=== PATIENT | male | born 1975 | race Caucasian/White ===

== ENCOUNTER 2017-08-20 22:16 | Emergency (ER) | payer SELFPAY ==
[2017-08-20] MEDS ORDERED: 0.9 % SODIUM CHLORIDE 1,000 ML BAG IV ONE (22:38)
[2017-08-20 22:39] LABS: BASO % 0.1 % (0-6); HEMATOCRIT 32.7 % (42.0-52.0); HEMOGLOBIN 11.2 gm/dl (14.0-18.0); LYMPH % 6.4 % (16-45); MEAN CELL VOLUME 89.8 fl (81-97); MEAN CORPUSCULAR HGB CONC 34.3 g/dl (32-36); MEAN PLATELET VOLUME 10.3 fl (7.4-10.4); MONO % 6.2 % (0-9); PLATELET COUNT 923 K/uL (130-400); RED BLOOD COUNT 3.64 M/uL (4.40-5.70); RED CELL DISTRIBUTION WIDTH 15.2 % (11.5-14.5)
[2017-08-20 22:40] LABS: INFLUENZA A NEGATIVE (NEGATIVE); INFLUENZA B NEGATIVE (NEGATIVE)
[2017-08-20 22:41] LABS: MEAN CORPUSCULAR HEMOGLOBIN 30.7 pg (27-33); WHITE BLOOD COUNT W/O DIFF 35.8 K/uL (4.2-12.2)
[2017-08-20 22:52] LABS: BLOOD UREA NITROGEN 32 mg/dL (6-20); EST GLOMERULAR FILTRATION RATE 39 mL/min
[2017-08-20 22:53] LABS: TOTAL PROTEIN 8.9 g/dL (6.6-8.7)
[2017-08-20 22:55] LABS: GLUCOSE,RANDOM 150 mg/dL (74-109)
[2017-08-20 22:57] LABS: ALT/SGPT 7 U/L (<41); AST/SGOT 8 U/L (10.0-50.0)
[2017-08-20 22:58] LABS: ALB/GLOB RATIO 0.6 (1.1-1.8); ALBUMIN 3.3 g/dL (4.0-5.0); ALKALINE PHOSPHATASE 145 U/L (40-129)
[2017-08-20] MEDS ORDERED: SOD CHLOR 0.9% WITH KCL 40MEQ 40 MEQ/1,000 ML IV.SOLN IV ONE (23:12)
[2017-08-20] MEDS ORDERED: POTASSIUM CHLORIDE 20 MEQ/15ML CUP PO ONE (23:12)
[2017-08-20 23:13] LABS: PLATELET ESTIMATE INCREASED (NORMAL)
[2017-08-20 23:14] LABS: HYPERSEGMENTED POLYS 2+
[2017-08-20] MEDS ORDERED: ONDANSETRON HCL IV 4 MG/2 ML VIAL IVP ONE (23:49)
[2017-08-20] MEDS ORDERED: CEFTRIAXONE SODIUM 1 GM in 0.9 % SODIUM CHLORIDE 100ML 100 ML IVPB ONE (23:55)
--- NOTE | 2017-08-21 00:08 | Emergency Department Record ---
History of Present Illness - General Chief Complaint: Shortness of breath Stated Complaint: MAGDA,COUCH, PAIN UNDER RIBS Time Seen by Provider: 08/20/17 22:23 Source: Patient Mode of Arrival: Ambulatory Limitations: No limitations - History of Present Illness Initial Comments: pt has been sick for 6 wks. he was dxd w bronchitis.he had no cxr. he has contd to be sick. he has pain in his right chest. he is sob. he has not been to a dr in years except for bronchits. he smokes MD Complaint: Chest pain, Cough, Pain with inspiration, Shortness of breath Onset/Timin -: Month(s) Severity scale (1-10): 8 Quality: Sharp, Stabbing Consistency: Constant Improves With: Nothing Worsens With: Coughing Associated Symptoms: Chest pain, Cough Treatments Prior to Arrival: Bronchodilator - Related Data Home Oxygen Therapy: No Allergies Allergy/AdvReac Type Severity Reaction Status Date / Time No Known Drug Allergies Allergy Verified 08/20/17 22:20 Travel Screening - Travel/Exposure Within Last 30 Days Have you traveled within the last 30 days?: No - Travel Symptoms Symptom Screening: None Review of Systems Reviewed: No additional complaints except as noted below Constitutional: Reports: As per HPI. Denies: Chills, Fever, Malaise, Night sweats, Weakness, Weight change Eyes: Reports: As per HPI. Denies: Eye discharge, Eye pain, Photophobia, Vision change ENT: Reports: As per HPI. Denies: Congestion, Dental pain, Ear pain, Epistaxis , Hearing loss, Throat pain Respiratory: Reports: As per HPI, Cough, Dyspnea. Denies: Hemoptysis, Stridor, Wheezes Cardiovascular: Reports: As per HPI, Chest pain. Denies: Arrhythmia, Dyspnea on exertion, Edema, Murmurs, Orthopnea, Palpitations, Paroxysmal nocturnal dyspnea, Rheumatic Fever, Syncope Endocrine: Reports: As per HPI. Denies: Fatigue, Heat or cold intolerance, Polydipsia, Polyuria Gastrointestinal: Reports: As per HPI. Denies: Abdominal pain, Constipation, Diarrhea, Hematemesis, Hematochezia, Melena, Nausea, Vomiting Genitourinary: Reports: As per HPI. Denies: Dysuria, Frequency, Hematuria, Incontinence, Retention, Testicular pain, Testicular mass, Urgency Musculoskeletal: Reports: As per HPI. Denies: Arthralgia, Back pain, Gout, Joint swelling, Myalgia, Neck pain Skin: Reports: As per HPI. Denies: Bruising, Change in color, Change in hair/ nails, Lesions, Pruritus, Rash Neurological: Reports: As per HPI. Denies: Abnormal gait, Confusion, Headache, Numbness, Paresthesias, Seizure, Tingling, Tremors, Vertigo, Weakness Psychiatric: Reports: As per HPI. Denies: Anxiety, Auditory hallucinations, Depression, Homicidal thoughts, Suicidal thoughts, Visual hallucinations Hematological/Lymphatic: Reports: As per HPI. Denies: Anemia, Blood Clots, Easy bleeding, Easy bruising, Swollen glands Past Medical History - SOCIAL HISTORY Smoking Status: Current every day smoker - RESPIRATORY Hx Respiratory Disorders: No - CARDIOVASCULAR Hx Cardio Disorders: No - NEURO Hx Neuro Disorders: No - GI Hx GI Disorders: No - Hx Genitourinary Disorders: No - ENDOCRINE Hx Endocrine Disorders: No - MUSCULOSKELETAL Hx Musculoskeletal Disorders: No - PSYCH Hx Psych Problems: No - HEMATOLOGY/ONCOLOGY Hx Hematology/Oncology Disorders: No Family Medical History Any Significant Family History?: Yes Hx HTN: Father Physical Exam - General General Appearance: Alert, Oriented x3, Cooperative, Mild distress - Head Head exam: Normal inspection - Eye Eye exam: Normal appearance, PERRL, EOMI Pupils: Normal accommodation - ENT ENT exam: Normal exam, Mucous membranes moist, Normal external ear exam, Normal orophraynx Ear exam: Normal external inspection. negative: External canal tenderness Nasal Exam: Normal inspection. negative: Discharge, Sinus tenderness Mouth exam: Normal external inspection, Tongue normal Teeth exam: Normal inspection. negative: Dental caries Throat exam: Normal inspection. negative: Tonsillar erythema, Tonsillar exudate - Neck Neck exam: Normal inspection, Full ROM. negative: Tenderness - Respiratory Respiratory exam: Rales, Rhonchi. negative: Respiratory distress - Cardiovascular Cardiovascular Exam: Normal rhythm, Normal heart sounds, Tachycardia - GI/Abdominal GI/Abdominal exam: Soft, Normal bowel sounds. negative: Tenderness - Rectal Rectal exam: Deferred - exam: Deferred - Extremities Extremities exam: Normal inspection, Full ROM, Normal capillary refill. negative: Tenderness - Back Back exam: Reports: Normal inspection, Full ROM. Denies: Muscle spasm, Rash noted, Tenderness - Neurological Neurological exam: Alert, Normal gait, Oriented X3, Reflexes normal - Psychiatric Psychiatric exam: Normal affect, Normal mood - Skin Skin exam: Dry, Intact, Normal color, Warm Course Vital Signs 08/20/17 08/20/17 08/20/17 22:23 23:02 23:50 Temperature 98.5 F Pulse Rate [ 112 H 114 H [employer] ] Pulse Rate [ 148 H Pulse Ox Probe] Respiratory 28 H 20 24 Rate Blood Pressure 140/117 [Left Arm] Blood Pressure 129/93 163/108 [Right Arm] Pulse Ox 98 99 99 Medical Decision Making - Lab Data Result diagrams: 08/20/17 22:30 08/20/17 22:30 Lab Results 08/20/17 08/20/17 08/20/17 Range/Units 22:29 22:30 22:30 WBC 35.8 H* (4.2-12.2) K/uL RBC 3.64 L (4.40-5.70) M/uL Hgb 11.2 L (14.0-18.0) gm/dl Hct 32.7 L (42.0-52.0) % MCV 89.8 (81-97) fl MCH 30.7 (27-33) pg MCHC 34.3 (32-36) g/dl RDW 15.2 H (11.5-14.5) % Plt Count 923 H (130-400) K/uL MPV 10.3 (7.4-10.4) fl Neutrophils % 87.0 H (47-80) % Lymphocytes % 6.4 L (16-45) % Monocytes % 6.2 (0-9) % Eosinophils % 0.0 (0-6) % Basophils % 0.1 (0-6) % Lymphocytes 8.0 L (16-45) % Monocytes 5.0 (0-9) % Hypersegmented Polys 2+ Platelet Estimate Increased (NORMAL) RBC Morphology Normal D-Dimer (0-0.59) mg/L FEU Sodium 129 L (136-145) mmol/L Potassium 2.8 L* (3.4-4.5) mmol/L Chloride 79 L (98-107) mmol/L Carbon Dioxide 11.0 L (22-29) mmol/L Anion Gap 39.0 H (7-16) BUN 32 H (6-20) mg/dL Creatinine 2.0 H (0.7-1.2) mg/dL Estimated GFR 39 mL/min Random Glucose 150 H (74-109) mg/dL Calcium 11.3 H (8.6-10.0) mg/dL Total Bilirubin 0.20 (0.2-1.0) mg/dL AST 8 L (10.0-50.0) U/L ALT 7 (<41) U/L Alkaline Phosphatase 145 H (40-129) U/L Troponin T < 0.010 (0-0.010) ng/mL NT-Pro-B Natriuret Pep 615.40 H (<125) pg/mL Total Protein 8.9 H (6.6-8.7) g/dL Albumin 3.3 L (4.0-5.0) g/dL Globulin 5.6 H (1.4-4.8) gm/dL Albumin/Globulin Ratio 0.6 L (1.1-1.8) Influenza Type A Ag Negative (NEGATIVE) Influenza Type B Ag Negative (NEGATIVE) 08/20/17 Range/Units 22:30 WBC (4.2-12.2) K/uL RBC (4.40-5.70) M/uL Hgb (14.0-18.0) gm/dl Hct (42.0-52.0) % MCV (81-97) fl MCH (27-33) pg MCHC (32-36) g/dl RDW (11.5-14.5) % Plt Count (130-400) K/uL MPV (7.4-10.4) fl Neutrophils % (47-80) % Lymphocytes % (16-45) % Monocytes % (0-9) % Eosinophils % (0-6) % Basophils % (0-6) % Lymphocytes (16-45) % Monocytes (0-9) % Hypersegmented Polys Platelet Estimate (NORMAL) RBC Morphology D-Dimer 2.42 H (0-0.59) mg/L FEU Sodium (136-145) mmol/L Potassium (3.4-4.5) mmol/L Chloride (98-107) mmol/L Carbon Dioxide (22-29) mmol/L Anion Gap (7-16) BUN (6-20) mg/dL Creatinine (0.7-1.2) mg/dL Estimated GFR mL/min Random Glucose (74-109) mg/dL Calcium (8.6-10.0) mg/dL Total Bilirubin (0.2-1.0) mg/dL AST (10.0-50.0) U/L ALT (<41) U/L Alkaline Phosphatase (40-129) U/L Troponin T (0-0.010) ng/mL NT-Pro-B Natriuret Pep (<125) pg/mL Total Protein (6.6-8.7) g/dL Albumin (4.0-5.0) g/dL Globulin (1.4-4.8) gm/dL Albumin/Globulin Ratio (1.1-1.8) Influenza Type A Ag (NEGATIVE) Influenza Type B Ag (NEGATIVE) Disposition Disposition: Transfer Clinical Impression: Hypokalemia, Elevated d-dimer, Renal insufficiency Pneumonia Qualifiers: Pneumonia type: due to unspecified organism Laterality: right Lung location: upper lobe of lung Qualified Code(s): J18.1 - Lobar pneumonia, unspecified organism Disposition: Acute [facility] Transfer: needs specialists and vq scan Accepting Physician: dr prajapati Time Discussed w/Accepting Physician: 00:51 Forms: Patient Portal Access Quality - Quality Measures Quality Measures: N/A - Blood Pressure Screening Does Patient Have Any of the Following: No Blood Pressure Classification: Hypertensive Reading Systolic Measurement: 163 Diastolic Measurement: 108 Screening for High Blood Pressure: < First Hypertensive BP, F/U Documented > [ G8950] First Hypertensive Follow-up Interventions: Follow-up with rescreen GT 1 day and LT 4 weeks.
[2017-08-21] MEDS ORDERED: MAGNESIUM HYDROXIDE/AL HYDROX 30 ML, LIDOCAINE VISC 2% 200 MG PO ONE ×2 (00:18)
== END 2017-08-21 01:35 | disposition short-term general hospital (02) ==
LOC: ER 22:16
DX: J18.1 Lobar pneumonia, unspecified organism (principal); E87.6 Hypokalemia; N28.9 Disorder of kidney and ureter, unspecified; R79.89 Other specified abnormal findings of blood chemistry; R06.02 Shortness of breath; F17.210 Nicotine dependence, cigarettes, uncomplicated
CPT/HCPCS: 71046; 80053; 83880; 84484; 85027; 85379; 87400; 93005; 93010; 96365; 96366; 96368; 96375; 99285; J2405; J7030

== ENCOUNTER 2017-09-14 23:37 | Emergency (ER) | payer MEDICAID ==
--- NOTE | 2017-09-14 23:54 | Emergency Department Record ---
History of Present Illness - General Chief Complaint: General Stated Complaint: "MY DR SAID COME IN TO ER FOR IMMEDIATE BLOOD DOE Time Seen by Provider: 09/14/17 23:47 Source: Patient Mode of Arrival: Ambulatory Limitations: No limitations - History of Present Illness Initial comments: 42 yo male presents to ED for evaluation of severe anemia. Patient reports recent history of microcytic anemia following an episode of sepsis 1 months ago , Hgb has been in the 7 range. Patient was called tonight to come to ED for Hgb of 2. Patient denies any blood in the stool, dark tarry stools, or vomiting blood. Patient is receiving IV antibbiotics via PICC line, blood sample was drawn from his PICC but a wast sample was taken as well. Onset/Timin -: Days(s) Consistency: Constant Improves with: None Worsens with: None Associated Symptoms: Denies other symptoms - [place] Coma Scale Eye Response: (4) Open spontaneously Motor Response: (6) Obeys commands Verbal Response: (5) Oriented [place] Total: 15 - Related Data Allergies Allergy/AdvReac Type Severity Reaction Status Date / Time No Known Drug Allergies Allergy Unverified 09/09/17 15:37 Review of Systems Constitutional: Denies: Chills, Fever, Malaise, Night sweats Eyes: Denies: Eye discharge, Eye pain ENT: Denies: Congestion, Ear pain, Epistaxis Respiratory: Denies: Cough, Dyspnea Cardiovascular: Denies: Chest pain, Dyspnea on exertion Endocrine: Denies: Fatigue, Heat or cold intolerance Gastrointestinal: Denies: Abdominal pain, Nausea, Vomiting Genitourinary: Denies: Incontinence, Retention Musculoskeletal: Denies: Arthralgia, Back pain Skin: Denies: Bruising, Change in color Neurological: Denies: Abnormal gait, Confusion, Headache, Seizure Psychiatric: Denies: Anxiety Hematological/Lymphatic: Denies: Anemia, Blood Clots Past Medical History - SOCIAL HISTORY Smoking Status: Current every day smoker - RESPIRATORY Hx Respiratory Disorders: No - CARDIOVASCULAR Hx Cardio Disorders: No - NEURO Hx Neuro Disorders: No - GI Hx GI Disorders: No - Hx Genitourinary Disorders: No - ENDOCRINE Hx Endocrine Disorders: No - MUSCULOSKELETAL Hx Musculoskeletal Disorders: No - PSYCH Hx Psych Problems: No - HEMATOLOGY/ONCOLOGY Hx Hematology/Oncology Disorders: No Family Medical History Hx HTN: Father Physical Exam - General General Appearance: Alert, Oriented x3, Cooperative, No acute distress Limitations: No limitations - Head Head exam: Atraumatic, Normocephalic, Normal inspection Head exam detail: negative: Abrasion, Contusion, Carbajal's sign, General tenderness, Hematoma, Laceration - Eye Eye exam: Normal appearance. negative: Conjunctival injection, Periorbital swelling, Periorbital tenderness, Scleral icterus - ENT Ear exam: negative: Auricular hematoma, Auricular trauma Nasal Exam: negative: Active bleeding, Discharge, Dried blood, Foreign body Mouth exam: negative: Drooling, Laceration, Muffled voice, Tongue elevation - Neck Neck exam: Normal inspection. negative: Meningismus, Tenderness - Respiratory Respiratory exam: Other (Course BS RUL). negative: Rales, Respiratory distress , Rhonchi, Stridor - Cardiovascular Cardiovascular Exam: Regular rate, Normal rhythm, Normal heart sounds - GI/Abdominal GI/Abdominal exam: Soft. negative: Rebound, Rigid, Tenderness - Rectal Rectal exam: Deferred - exam: Deferred - Extremities Extremities exam: Other (Pale nail beds on examination with delayed cap refill) . negative: Pedal edema, Tenderness - Back Back exam: Denies: CVA tenderness (R), CVA tenderness (L) - Neurological Neurological exam: Alert, Normal gait, Oriented X3 - Psychiatric Psychiatric exam: Normal affect, Normal mood - Skin Skin exam: Pallor. negative: Abrasion Type of lesion: negative: abrasion Course Vital Signs 09/14/17 23:44 Temperature 98.4 F Pulse Rate [ 108 H Pulse Ox Probe] Respiratory 20 Rate Blood Pressure 121/77 [Left Arm] Pulse Ox 97 - Reevaluation(s) Reevaluation #1: 09/15/17 00:13 Patient's Hgb reported to be improved to 8.6 from 7.4. Awaiting chemistry report prior to discharge. WBC 16.2, labs are otherwise grossly unremarkable for an acute process. Patient was updated on all results, reports that he is feeling well, and appears stable for discharge at this time. Medical Decision Making - Lab Data Result diagrams: 09/14/17 00:06 09/14/17 00:06 Disposition Disposition: Discharge Clinical Impression: Chronic anemia Disposition: Home, Self-Care Condition: (2) Stable Instructions: Anemia (ED) Additional Instructions: Return to ED if your symptoms worsen or if you have any concerns. Follow-up with your family doctor in 3-5 days as directed. Forms: Patient Portal Access Time of Disposition: 00:27 Quality - Quality Measures Quality Measures: N/A - Blood Pressure Screening Does Patient Have Any of the Following: No Blood Pressure Classification: Pre-Hypertensive BP Reading Systolic Measurement: 121 Diastolic Measurement: 77 Screening for High Blood Pressure: < Pre-Hypertensive BP, F/U Documented > [ G8950] Pre-Hypertensive Follow-up Interventions: Referral to alternative/primary care provider.
[2017-09-15 00:07] LABS: HEMATOCRIT 27.8 % (42.0-52.0); HEMOGLOBIN 8.6 gm/dl (14.0-18.0); MEAN CELL VOLUME 96.9 fl (81-97); MEAN CORPUSCULAR HGB CONC 30.9 g/dl (32-36); MEAN PLATELET VOLUME 9.2 fl (7.4-10.4); PLATELET COUNT 738 K/uL (130-400); RED BLOOD COUNT 2.87 M/uL (4.40-5.70); RED CELL DISTRIBUTION WIDTH 17.3 % (11.5-14.5); WHITE BLOOD COUNT W/O DIFF 16.2 K/uL (4.2-12.2)
[2017-09-15 00:08] LABS: MEAN CORPUSCULAR HEMOGLOBIN 29.9 pg (27-33)
[2017-09-15 00:25] LABS: ALB/GLOB RATIO 0.7 (1.1-1.8); ALBUMIN 3.1 g/dL (4.0-5.0); ALKALINE PHOSPHATASE 99 U/L (40-129); ALT/SGPT 5 U/L (<41); AST/SGOT 7 U/L (10.0-50.0); BILIRUBIN,TOTAL < 0.20 mg/dL (0.2-1.0); BLOOD UREA NITROGEN 8 mg/dL (6-20); CREATININE 0.5 mg/dL (0.7-1.2); EST GLOMERULAR FILTRATION RATE > 60 mL/min; GLUCOSE,RANDOM 95 mg/dL (74-109); TOTAL PROTEIN 7.7 g/dL (6.6-8.7)
[2017-09-15 00:29] LABS: ABO GROUP B; RH TYPE POSITIVE
[2017-09-15 00:30] LABS: IMMED. SPIN CROSSMATCH COMPATIBLE
[2017-09-15 00:36] LABS: ANTIBODY SCREEN NEGATIVE (NEGATIVE)
== END 2017-09-15 00:39 | disposition home or self-care (01) ==
LOC: ER 23:37
DX: D50.9 Iron deficiency anemia, unspecified (principal); F17.210 Nicotine dependence, cigarettes, uncomplicated
CPT/HCPCS: 80053; 85027; 86850; 86900; 86901; 99283